=== PATIENT | male | born 1950 | race Caucasian/White ===

== ENCOUNTER → 2017-03-08 | Day surgery (SDC) | payer OTHER ==
[~2017-03-08] VITALS: Ht 175.3 cm; Wt 81.7 kg
[~2017-03-08] MED LIST: 0.9% Sodium Chloride 1,000 ML IV SCH; ALLO300T2 PO; ALPR0.5T8 PO; CYCL5TAB PO; FLUT16SP NS; HYDR-3740 PO; LISI-567 PO; SIMV20TA4 PO; Sodium Chloride LOK Flush 10 mL Syringe IV PRN; TRAM50TA2 PO; TRAZ-115 PO; fentaNYL-PF 50 mCg/mL 2 mL Inj IVPUSH PRN
[2017-03-08 13:00] VITALS: BP 137/89; PULSE 52; RESP 14; O2SAT 97
--- NOTE | 2017-03-08 13:48 | PCM.ENDCOL ---
Colonoscopy Date of Service: Mar 08, 2017 Physician Sridhar Harvey MD Pre Procedure Diagnosis: Screening Post Procedure Dx & Findings: Polyp hemorrhoids diverticuliti Procedure Colonoscopy PROCEDURE IN DETAIL: Prep adequate Withdrawal time 8 minutes After unremarkable rectal examination the Olympus video colonoscope was inserted patient's anal canal and was advanced to cecum. Landmarks were identified including the ileocecal valve and appendiceal orifice. Scope was withdrawn systematically. Visualized colonic mucosa showed healthy shiny mucosa with normal healthy-appearing vasculature. On the way into the cecum, we saw a descending polyp 1 cm. This was removed completely using hot snare. In the cecum, there was a 1 mm polyp which was removed completely uncle forceps. In the rectum, there was a 1 mm polyp which was removed completely using cold forceps. Patient a few small diverticula in the sigmoid colon. In the rectum retroflexion was done which showed hemorrhoids. Anal canal was inspected carefully on the way out and hemorrhoids noted. Impression Polyp 3 status post complete removal. Largest polyp 1 cm. Diverticuli Hemorrhoids Recommendation Repeat colonoscopy in 3 years Diverticular diet Presedation Assessment Risks and Benefits Informed consent was obtained from the patient after all risks and benefits including but not limited to drug reaction, infection, pain, bleeding, perforation, as well as alternatives were discussed. Patient monitoring Continuous pulse oximetry, cardiac monitoring, blood pressure monitoring, IV access, and oxygen at 2L per nasal cannula. Periprocedural Fentanyl: Fentanyl 175mcg Incrementally Midazolam: Midazolam 8mg Incrementally Complications There were no periprocedural complications identified. Post Procedure Plan Post Procedure Recommendations 1. Restrict activities today. 2. Resume normal activities in the morning. 3. Resume medications. 4. Patient informed of normal post procedure side effects as bloating, drowsiness, blood streaking in the stool. 5. average risk CRCS. If colon polyps come back as: -Hyperplastic- can repeat colonoscopy in 10 years -Tubular adenoma- repeat colonoscopy in 5 years -Tubulovillous/villous adenoma- repeat colonoscopy in 3 years -If any dysplasia- return to clinic as soon as possible 6. Please don't hesitate to call me with any questions. Sridhar Harvey MD Mar 08, 2017 13:48
[2017-03-08 13:50] VITALS: BP_SYST 114; BP_SYST 116; BP_DIAS 54; BP_DIAS 55; PULSE 68; RESP 12; O2SAT 97
[2017-03-08 14:03] VITALS: BP 111/62; PULSE 55; RESP 12; O2SAT 96
[2017-03-08 14:15] VITALS: BP 117/66; PULSE 49; RESP 12; O2SAT 97
--- NOTE | 2017-03-14 09:04 | PATH ---
SURGICAL PATHOLOGY Attending Physician:Sridhar Harvey M.D. CASE STATUS: Signed Out PATIENT NAME: SURAJ CATHERINE PID: [id number] : 1950 DATE COLLECTED:03/08/2017 00:00 SPECIMEN: 1: Colon, Polyp 2: Colon, Polyp 3: Rectum, Biopsy CLINICAL HISTORY: 1). DESCENDING POLYP X 1 2). CECAL POLYP X 1 3). RECTAL POLYP X 1 FINAL DIAGNOSIS: 1. Descending Colon, Polyp, Biopsy: Tubular adenoma; negative for high-grade dysplasia. 2. Cecal Polyp, Biopsy: Portion of tubular adenoma x1; negative for high-grade dysplasia. Superficial portion of colorectal mucosa x1 with no diagnostic abnormality. 3. Rectal Polyp, Biopsy: Tubular adenoma; negative for high-grade dysplasia. ICD10: K63.5 GROSS DESCRIPTION: The specimen is received in three formalin filled containers labeled with the patient's name. 1). The specimen is labeled "desc" and consists of 0.1 x 0.1 x 0.1 CM portion of tissue which is entirely submitted in cassette 1A. 2). The specimen is labeled "cecal" and consists of 2 tiny portions of tissue which aggregate to 0.1 x 0.1 x 0.1 CM. The specimen is entirely submitted in cassette 2A. 3). The specimen is labeled "rectal" and consists of a 0.4 x 0.4 x 0.3 CM portion of tissue which is entirely submitted in cassette 3A. 03/09/2017[place] ICD-9 CODES: CPT CODES: 1: 30540 2: 84342 3: 69791 Electronically Signed Out Zahira Amaral MD [facility] Pathology [facility], [place] [address] Technical component performed at [facility], [address] [place] [address] [address], [address]
== END | disposition home or self-care (01) ==
LOC: END 00:45
PROVIDERS: ATTEND Internal Medicine
DX: Z12.11 Encounter for screening for malignant neoplasm of colon (principal); Z80.0 Family history of malignant neoplasm of digestive organs; Z86.010 Personal history of colon polyps; D12.4 Benign neoplasm of descending colon; D12.8 Benign neoplasm of rectum; D12.0 Benign neoplasm of cecum; K64.9 Unspecified hemorrhoids; K57.30 Diverticulosis of large intestine without perforation or abscess without bleeding; I10 Essential (primary) hypertension; E78.5 Hyperlipidemia, unspecified; Z87.891 Personal history of nicotine dependence
CPT/HCPCS: 45380; 45385; G0500; J2250; J3010; J7030